=== PATIENT | male | born 1985 | race Caucasian/White ===

== ENCOUNTER → 2020-10-14 | Outpatient (CLI) | payer OTHER | LOC: RAD 10:37 | DX: M25.512 Pain in left shoulder (principal) ==

== ENCOUNTER 2020-11-16 09:59 | Outpatient (RCR) | payer OTHER | END 2020-11-25 17:00 | disposition home or self-care (01) | LOC: PT 09:59 | DX: S43.492A Other sprain of left shoulder joint, initial encounter (principal) ==